=== PATIENT | male | born 1970 | race Caucasian/White ===

== ENCOUNTER 2017-07-28 06:05 | Day surgery (SDC) | payer OTHER ==
[2017-07-28 06:52] LABS: ADD MAN DIFF? NO
[2017-07-28 07:18] LABS: ANION GAP 27 (8-16); CARBON DIOXIDE 24 mmol/L (21-31); CHLORIDE 98 mmol/L (97-110); GLUCOSE 126 mg/dl (70-220); INR 0.98; PROTIME 13.1 Sec (11.9-14.9)
[2017-07-28 07:19] LABS: PARTIAL THROMBOPLASTIN TIME 29.4 Sec (25.0-35.0)
[2017-07-28 07:20] LABS: BASOPHIL # 0.1 10^3/ul (0.0-0.1); BASOPHILS % 1.1 % (0.0-2.0); EOSINOPHILS # 0.4 10^3/ul (0.0-0.5); EOSINOPHILS % 5.2 % (0.0-7.0); HEMATOCRIT 26.9 % (42.0-52.0); HEMOGLOBIN 9.1 g/dl (14.0-18.0); LYMPHOCYTES # 1.4 10^3/ul (0.8-2.9); LYMPHOCYTES % 17.7 % (15.0-51.0); MEAN CORPUSCULAR HEMOGLOBIN 31.8 pg (29.0-33.0); MEAN CORPUSCULAR HGB CONC 33.8 g/dl (32.0-37.0); MEAN CORPUSCULAR VOLUME 94.1 fl (82.0-101.0); MEAN PLATELET VOLUME 10.1 fl (7.4-10.4); MONOCYTE # 0.7 10^3/ul (0.3-0.9); MONOCYTES % 9.1 % (0.0-11.0); NEUTROPHIL # 5.2 10^3/ul (1.6-7.5); NEUTROPHILS % 66.6 % (39.0-77.0); PLATELET COUNT 237 10^3/UL (140-415); RED BLOOD COUNT 2.86 10^6/ul (4.70-6.10); RED CELL DISTRIBUTION WIDTH 13.8 % (11.5-14.5)
[2017-07-28 07:20] LABS: WHITE BLOOD COUNT 7.9 10^3/ul (4.8-10.8)
[2017-07-28 07:21] LABS: HOLD TRANSMISSIONS 1
[2017-07-28 07:25] LABS: SODIUM 143 mmol/L (135-144)
[2017-07-28 07:28] LABS: POTASSIUM 5.6 mmol/L (3.5-5.1)
[2017-07-28 07:29] LABS: BLOOD UREA NITROGEN 106 mg/dl (7-20)
[2017-07-28 07:30] LABS: CALCIUM 9.1 mg/dl (8.4-10.2)
[2017-07-28] MEDS ORDERED: IOHEXOL 350MG/ML 50 ML BTL (07:59)
[2017-07-28] MEDS ORDERED: IODIXANOL LOCM 100 ML BTL (07:59)
[2017-07-28] MEDS ORDERED: LIDOCAINE 1% (MDV) 20 ML INJ (07:59)
[2017-07-28] MEDS ORDERED: FENTAnyl 50 MCG/ML VIAL (08:10)
[2017-07-28] MEDS ORDERED: MIDAZOLAM 1 MG/ML 2 ML INJ (08:10)
== END 2017-07-28 10:46 | disposition home or self-care (01) ==
LOC: SDS 06:05
DX: I12.0 Hypertensive chronic kidney disease with stage 5 chronic kidney disease or end stage renal disease (principal); N18.6 End stage renal disease
CPT/HCPCS: 36901; 71045; 80048; 85025; 85610; 85730; 93005

== ENCOUNTER 2017-09-29 10:45 | Day surgery (SDC) | payer OTHER ==
[2017-09-29 11:38] LABS: ADD MAN DIFF? NO
[2017-09-29 11:41] LABS: BASOPHIL # 0.1 10^3/ul (0.0-0.1); BASOPHILS % 1.1 % (0.0-2.0); EOSINOPHILS # 0.4 10^3/ul (0.0-0.5); EOSINOPHILS % 5.3 % (0.0-7.0); HEMATOCRIT 28.9 % (42.0-52.0); HEMOGLOBIN 9.6 g/dl (14.0-18.0); LYMPHOCYTES % 12.5 % (15.0-51.0); MEAN CORPUSCULAR HEMOGLOBIN 31.5 pg (29.0-33.0); MEAN CORPUSCULAR HGB CONC 33.2 g/dl (32.0-37.0); MEAN CORPUSCULAR VOLUME 94.8 fl (82.0-101.0); MEAN PLATELET VOLUME 9.9 fl (7.4-10.4); MONOCYTE # 0.8 10^3/ul (0.3-0.9); MONOCYTES % 9.5 % (0.0-11.0); NEUTROPHIL # 5.6 10^3/ul (1.6-7.5); NEUTROPHILS % 71.3 % (39.0-77.0); PLATELET COUNT 220 10^3/UL (140-415); RED BLOOD COUNT 3.05 10^6/ul (4.70-6.10); RED CELL DISTRIBUTION WIDTH 13.5 % (11.5-14.5)
[2017-09-29 11:41] LABS: WHITE BLOOD COUNT 7.9 10^3/ul (4.8-10.8)
[2017-09-29 12:01] LABS: INR 0.95; PROTIME 12.8 Sec (11.9-14.9)
[2017-09-29 12:02] LABS: PARTIAL THROMBOPLASTIN TIME 30.9 Sec (25.0-35.0)
[2017-09-29] MEDS ORDERED: HEPARIN 1000 UNITS/NS (A-LINE) 1,000 ML (12:22)
[2017-09-29] MEDS ORDERED: IODIXANOL LOCM 50 ML BTL (12:22)
[2017-09-29] MEDS ORDERED: LIDOCAINE 1% (MDV) 20 ML INJ (12:22)
[2017-09-29 12:28] LABS: ANION GAP 11 (8-16); CARBON DIOXIDE 36 mmol/L (21-31); CHLORIDE 98 mmol/L (97-110); GLUCOSE 119 mg/dl (70-220)
[2017-09-29 12:30] LABS: BLOOD UREA NITROGEN 41 mg/dl (7-20); CALCIUM 9.5 mg/dl (8.4-10.2); CREATININE 7.67 mg/dl (0.61-1.24); SODIUM 141 mmol/L (135-144)
[2017-09-29] MEDS ORDERED: MIDAZOLAM 1 MG/ML 2 ML INJ (12:47)
[2017-09-29] MEDS ORDERED: FENTAnyl 50 MCG/ML VIAL (12:48)
[2017-09-29] MEDS ORDERED: IODIXANOL LOCM 100 ML BTL (12:52)
[2017-09-29] MEDS ORDERED: hydrALAzine 20 MG INJ ×2 (13:02→13:14)
[2017-09-29] MEDS: DESMOPRESSIN IVPB (17:33)
[2017-09-29] MEDS: SOD CHLORIDE 0.9% IVPB (17:33)
== END 2017-09-29 18:26 | disposition home or self-care (01) ==
LOC: SDS 10:45
DX: I12.0 Hypertensive chronic kidney disease with stage 5 chronic kidney disease or end stage renal disease (principal); N18.6 End stage renal disease
CPT/HCPCS: 37248; 37249; 75820; 75825; 75827; 80048; 82962; 85025; 85610; 85730